=== PATIENT | female | born 1950 | race Caucasian/White ===

== ENCOUNTER 2016-02-26 19:06 | Inpatient (IN) | payer OTHER ==
[~2016-02-26] VITALS: Ht 170.2 cm; Wt 63.5 kg
--- NOTE | 2016-02-26 19:10 | ED DYSPNEA/ASTHMA COMPLAINT ---
History of Present Illness General Chief Complaint: Dyspnea (COPD, CHF, Other) Stated Complaint: DIFF BREATHING Source: patient Exam Limitations: no limitations Vital Signs & Intake/Output Vital Signs & Intake/Output Vital Signs Date Time Temp Pulse Resp B/P Pulse O2 O2 Flow FiO2 Ox Delivery Rate 02/26 0040 98.7 93 20 108/80 98 Nasal 2.0L Cannula 02/25 2211 97.0 93 16 130/71 96 Nasal 2.0L Cannula 02/25 2050 102 20 156/89 98 Nasal 2.0L Cannula 02/25 2027 Nasal 2.0L Cannula 02/25 2022 103 02/26 2008 105 16 134/92 98 Nasal 2.5L Cannula 02/25 1942 106 114/80 02/25 1939 140 114/80 02/25 1934 166 120/58 02/26 1932 174 02/26 1932 168 120/58 02/25 1930 176 140/100 02/25 1930 175 120/58 02/25 192 190 02/25 192 190 144/100 02/25 191 180 144/100 ED Intake and Output 02/26 0000 02/25 1200 Intake Total 40 Output Total Balance 40 Intake, IV 40 Patient 140 lb Weight Allergies Coded Allergies: No Known Allergies (02/26/16) Reconcile Medications No Known Home Medications Triage Nurses Notes Reviewed? yes Onset: Abrupt Duration: week(s):, waxing and waning Timing: recent history Severity: severe Activities at Onset: none Prior Episodes/Possible Cause: occasional episodes Modifying Factors: Improves With: rest. Associated Symptoms: palpitations, shortness of breath HPI: 65 yo woman presents with intermittent palpitations and shortness of breath for the past several weeks. She notes that today she felt a rapid heart beat for several hours, accompanied by shortness of breath that did not son. She called the ambulance who noted a rapid heart rate. She noted occasional pressure in her chest, without radiation. She notes no cough, phlegm, wheeze, fever. She is otherwise well. Past History Medical History Any Pertinent Medical History? see below for history (no PMD for several years. ) Surgical History Surgical History: none Family History Hx Contributory? No Review of Systems Review of Systems Constitutional: Reports: no symptoms. EENTM: Reports: no symptoms. Respiratory: Reports: no symptoms. Cardiovascular: Reports: no symptoms. GI: Reports: no symptoms. Genitourinary: Reports: no symptoms. Musculoskeletal: Reports: no symptoms. Skin: Reports: no symptoms. Neurological/Psychological: Reports: no symptoms. Hematologic/Endocrine: Reports: no symptoms. Immunologic/Allergic: Reports: no symptoms. All Other Systems: Reviewed and Negative Physical Exam Physical Exam General Appearance: well developed/nourished, mild distress Head: atraumatic, normal appearance Eyes: Bilateral: normal appearance. Ears, Nose, Throat: normal pharynx Neck: normal inspection, supple, full range of motion Respiratory: normal breath sounds, chest non-tender, no respiratory distress, quiet respiration, lungs clear Cardiovascular: tachycardic Gastrointestinal: normal bowel sounds Rectal: normal exam, normal rectal tone, heme negative stool Extremities: normal inspection Neurologic/Psych: no motor/sensory deficits, awake, alert, oriented x 3 Skin: intact, warm/dry Core Measures ACS in differential dx? No Severe Sepsis Present: No Septic Shock Present: No Progress Differential Diagnosis: afib vs svt vs mi vs other. Plan of Care: Orders Procedure Date/time Status Nothing by Mouth 02/26 B Active TROPONIN LEVEL 02/26 1200 Active EKG 02/26 1200 Active TROPONIN LEVEL 02/26 0400 Active LIPID PANEL 02/26 0400 Active HEPATIC FUNCTION PANEL 02/26 0400 Active CBC WITHOUT DIFFERENTIAL 02/26 0400 Active BASIC ELECTROLYTES PLUS BUN&CR 02/26 0400 Active EKG 02/26 0400 Active PARTIAL THROMBOPLASTIN TIME 02/26 0345 Active Heparin Drip- AFIB/FLUTTER/PE/ 02/25 2348 Active Vital Signs 02/25 2347 Active Teach/Educate 02/25 234 Active Nutritional Intake, Monitor 02/25 2347 Active Isolation 02/25 2347 Active Intake & Output 02/25 2347 Active Patient Care Conference 02/25 2347 Active Activity/Ambulation 02/25 2347 Active Saline Lock 02/25 2131 Active Misc Message 02/25 2131 Active ED Holding Orders 02/25 2131 Active Admit to inpatient 02/25 2131 Active Vital Signs 02/25 2131 Active Code Status 02/25 2131 Active ECHOCARDIOGRAM 02/26 2128 Active Pathway - chart 02/26 2120 Active Code Status 02/26 2120 Complete Intake & Output 02/26 2016 Active Patient Data 02/25 2014 Active Add-on Test (ER Only) 02/25 1949 Active EKG 02/26 1936 Active TSH REFLEX 02/25 1911 Complete TROPONIN LEVEL 02/25 1911 Complete PARTIAL THROMBOPLASTIN TIME 02/25 1911 Complete PROTHROMBIN TIME 02/25 1911 Complete COMPREHENSIVE METABOLIC PANEL 02/25 1911 Complete CBC WITHOUT DIFFERENTIAL 02/25 1911 Complete B-TYPE NATRIURETIC PEP (BNP) 02/25 1911 Complete EKG 02/25 1911 Active Pathway - chart 02/25 UNK Active House Staff 02/25 UNK Active VTE Mechanical Prophylaxis 02/25 UNK Active Current Medications Sig/Joann Start time Last Medication Dose Stop Time Status Admin Acetaminophen 650 MG Q6P PRN 02/25 2130 AC (Tylenol) Diltiazem HCl 125 MG Q12H 02/25 1945 CAN (Cardizem DRIP) Sodium Chloride 100 ML (Normal Saline 0.9%) Metoprolol Tartrate 5 MG ONCE ONE 02/25 1930 CAN (Lopressor Inj. 5MG 02/25 1931 Per 5 Ml) Laboratory Tests 02/26/16 1950: Anion Gap 16, Estimated GFR 56 L, BUN/Creatinine Ratio 19.0, Glucose 152 H, Calcium 9.1, Total Bilirubin 1.4 H, AST 30, ALT 76 H, Alkaline Phosphatase 72, Troponin I 0.09, Mkw-C-Iiirptkenzp Pept 8180 H, Total Protein 6.1 L, Albumin 3.6, Globulin 2.5, Albumin/Globulin Ratio 1.4, TSH &T3 &Free T4 Intrp 2.340, PT 12.4, INR 1.18, APTT 31, CBC w Diff NO MAN DIFF REQ, RBC 4.33, MCV 94.2, MCH 31.4 H, RDW 14.6 H, MPV 10.8 H, Gran % 82.1 H, Lymphocytes % 12.6 L, Monocytes % 4.7, Eosinophils % 0.3, Basophils % 0.3, Absolute Granulocytes 8.2 H, Absolute Lymphocytes 1.3, Absolute Monocytes 0.5, Absolute Eosinophils 0, Absolute Basophils 0, PUBS MCHC 33.3 Diagnostic Imaging: Viewed by Me: Radiology Read. Discussed w/RAD: Radiology Read. CXR Impression: no acute abnormality, no infiltrates, normal size heart, normal mediastinum Initial ED EKG: svt vs afib with rvr Repeat EKG: changed Departure Departure Disposition: STILL A PATIENT Condition: Stable Clinical Impression Primary Impression: Atrial fibrillation with rapid ventricular response Referred to [facility] as new patient No Departure Forms: Customer Survey General Discharge Information Prescriptions: Current Visit Scripts No Known Home Medications Admission Note Spoke With: BHARAT SPEARS MD Documentation of Exam: Documentation of any treatments & extenuating circumstances including Concerns Regarding Discharge (functional status, medication knowledge or non-compliance, living conditions, etc.) that warrant an admission rather than observation: pt with afib with rapid ventricular response, requiring lopressor iv, dilt gtt. pt had pulse in 200's initially requiring adenosine to determine afib with rvr vs svt. Critical Care Note Critical Care Note Critical Care Time: 30-74 min Comments: pt given adenosine 6mg iv x 2 which reveals underlying afib. pt given lopressor 5mg iv x 1... which reduced pulse from 180's to 140's pt give diltiazem 10mg iv x 2... pulse decreased to 90's-100's... pt started on dilt gtt and heparin (pt guiac negative)... pulse in 80's
[2016-02-26 19:58] LABS: ABSOLUTE BASOPHIL COUNT 0 /CUMM (0.0-0.2); ABSOLUTE EOSINOPHIL COUNT 0 /CUMM (0.0-0.7); ABSOLUTE GRANULOCYTE CT 8.2 /CUMM (1.4-6.5); ABSOLUTE LYMPH COUNT 1.3 /CUMM (1.2-3.4); ABSOLUTE MONOCYTE COUNT 0.5 /CUMM (0.10-0.60); BASOPHIL % 0.3 % (0.0-2.0); EOSINOPHIL % 0.3 % (0-5); GRANULOCYTE % 82.1 % (42.2-75.2); HEMATOCRIT 40.8 % (37-47); MEAN CORPUSCULAR HGB 31.4 PG (27.0-31.0); MEAN CORPUSCULAR HGB CONC 33.3 G/DL (33.0-37.0); MEAN CORPUSCULAR VOLUME 94.2 FL (81.0-99.0); MEAN PLATELET VOLUME 10.8 FL (7.4-10.4); PLATELET COUNT 176 /CUMM (130-400); RBC DISTRIBUTION WIDTH 14.6 % (11.5-14.5); RED BLOOD CELL CT 4.33 /CUMM (4.20-5.40)
[2016-02-26] MEDS ORDERED: PROTONIX40 M3 PO (20:08)
[2016-02-26 20:12] LABS: PT 12.4 SEC (9.4-12.5); PTT 31 SEC (25-37)
--- NOTE | 2016-02-26 20:30 | History & Physical ---
JANUSZ SAUNDERS MD 02/26/162023: General Information and HPI MD Statement: I have seen and personally examined FLORIDALMA BELTRAN and documented this H&P. The patient is a 65 year old F who presented with a patient stated chief complaint of []. Source of Information: patient Exam Limitations: no limitations History of Present Illness: Patient is a 65-year-old female presented with the chief complaints of shortness of breath, chest pain and palpitations from last 3 weeks. According to the patient. She is complaining her heart is beating very fast. She felt palpitations intermittently, 4 times in a week, never while sleeping. It is associated with shortness of breath especially while walking. She felt generalized weakness, tingling and numbness in the legs and hands. She had occasional chest pain, on rest, 3 out of 10. She also became start her father and brother also having atrial fibrillation but she don't know exactly the cause of it. She denies anxiety, stress, swelling in the legs, pain abdomen, constipation, rash, discoloration of skin, orthopnea, PND, cough, recent URI, fever, thyroid issues in the past, hospitalization, diabetes, hypertension, anemia, GI bleed, sweating. She is not following any Dr/she don't have any primary care provider. Chronic diarrhea-she has history of chronic diarrhea from many years. She claims that she was evaluated many years ago but never had colonoscopy. It is on and off watery in nature, denies any blood in the stool. She occasionally will take Imodium for it. Incontinence of the urine-since many years, not taking any medications. Her sister is also having the same. 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 She never smoked, using alcohol socially. Family history- Father- of Massive stroke, Had history of atrial fibrillation Mother -had many strokes, of infection in the colon. Allergies/Medications Allergies: Coded Allergies: No Known Allergies (02/26/16) Past History Travel History Traveled to [place] past 21 day No Medical History Neurological: NONE EENT: NONE Cardiovascular: NONE Respiratory: NONE Gastrointestinal: NONE Hepatic: NONE Renal: NONE Musculoskeletal: NONE Psychiatric: NONE Endocrine: NONE Blood Disorders: NONE Cancer(s): NONE CIGARETTE SELLER/Reproductive: NONE Surgical History Surgical History: none Past Family/Social History Psychosocial History ETOH Use: occasional use Illicit Drug Use: denies illicit drug use Review of Systems Review of Systems Constitutional: Reports: chills, malaise, weakness. Denies: diaphoresis, fever, unexplained weight loss. EENTM: Denies: no symptoms. Cardiovascular: Reports: chest pain, palpitations. Denies: edema, orthopena, peripheral edema, syncope. Respiratory: Reports: cough, short of breath. Denies: hemoptysis, orthopnea, sputum production, stridor, wheezing. GI: Reports: diarrhea. Denies: abdominal pain, bloating, constipation, distention, melena, nausea, bloody stool, changes in stool, vomiting, steatorrhea. Genitourinary: Reports: frequency, urgency. Denies: discharge, dysuria, hematuria, hesitation, nocturia, pain. Musculoskeletal: Denies: back pain, gout, joint pain, joint swelling. Skin: Denies: no symptoms. Neurological/Psychological: Reports: anxiety. Denies: ataxia, cognitive dysfunction, confusion, depressed, dementia, emotional problems, headache, numbness, paresthesia, pre-existing deficit. Exam & Diagnostic Data Last 24 Hrs of Vital Signs/I&O Vital Signs Date Time Temp Pulse Resp B/P Pulse O2 O2 Flow FiO2 Ox Delivery Rate 02/26 0040 98.7 93 20 108/80 98 Nasal 2.0L Cannula 02/25 2211 97.0 93 16 130/71 96 Nasal 2.0L Cannula 02/25 2050 102 20 156/89 98 Nasal 2.0L Cannula 02/25 2027 Nasal 2.0L Cannula 02/25 2022 103 02/26 2008 105 16 134/92 98 Nasal 2.5L Cannula 02/25 1942 106 114/80 02/25 1939 140 114/80 02/25 1934 166 120/58 02/26 1932 174 02/26 1932 168 120/58 02/25 1930 176 140/100 02/25 1930 175 120/58 02/25 1925 190 02/25 1925 190 144/100 02/25 1917 180 144/100 Intake & Output 02/26 0800 02/26 0000 02/25 1600 Intake Total 40 Output Total Balance 40 Intake, IV 40 Patient 63.503 kg Weight Physical Exam General Appearance Alert, Oriented X3, Cooperative, No Acute Distress Skin No Rashes HEENT Atraumatic, PERRLA, EOMI Neck Supple, No JVD, No thryomegaly Cardiovascular irregular Lungs Clear to Auscultation, Normal Air Movement Abdomen Soft, No Tenderness Neurological Normal Gait, Normal Speech, Strength at 5/5 X4 Ext, Normal Tone Extremities No Clubbing, No Cyanosis, No Edema, Normal Pulses Assessment/Plan Assessment: Assessment and plan Vital signs at the time of admission-temperature 98.7, pulse 93, respiratory rate 20, blood pressure 140/100, SPO2 98% on nasal cannula 2 liters EKG - atrial fibrillation, heart rate-105, no ST-T wave changes. Chest p-igr-Obttjcjcstjq, small right effusion. No significant pulmonary vascular congestion. Emphysematous hyperinflation of lungs. Pertinent labs-troponin I-0.09, AST 76, proBNP 8180, Problem List - Paroxysmal Af/ New onset Plan - Paroxysmal atrial fibrillation - * As the patient is having chest pain, will trend EKGs/troponin * We'll start patient on IV heparin for 24 hours and converted to by mouth medication warfarin/Eliquis/pradaxa. She was still confused, which medication she really want to be on * We'll start the patient on IV diltiazem with a target heart rate < 110 * Will do continuous cardiac monitoring * Watch was bradycardia/tachycardia * Watch for bleeding * Regular monitoring of APTT to adjust the dose of heparin * We will do echocardiogram to rule out any thrombus or any wall motion abnormality Diet-heart healthy diet DVT prophylaxis-ALP S/heparin CODE STATUS-full code As Ranked By This Provider Problem List: 1. Atrial fibrillation and flutter Core Measures/Miscellaneous Acute Coronary Syndrome ACS Diagnosis: No Cerebrovascular Accident CVA/TIA Diagnosis: No Congestive Heart Failure CHF Diagnosis: No Venous Thromboembolism VTE Risk Factors: Age > 40 VTE Prophylaxis Ordered Inpt: Mechanical (AL[facility]TED[facility]) [facility] d/t: No contraindications No VTE Pharm Prophylaxis d/t: No contraindications VTE Diagnosis: No VTE Type: NONE VTE Confirmed by (Test): NONE Severe Sepsis Severe Sepsis Present: No Septic Shock Septic Shock Present: No Miscellaneous Documentation Attending Case Discussed With: BHARAT SPEARS MD Primary Care Physician: PATIENT HAS NO PRIMARY CARE DR Patient sees these Specialists none Level of Patient Care: Telemetry BHARAT SPEARS MD 02/26/162056: General Information and HPI Allergies/Medications Home Med list Dabigatran Etexilate Mesylate (Pradaxa 150 MG) 150 MG CAPSULE 1 CAP PO BID Blood thinner Lisinopril 5 MG TABLET 1 TAB PO DAILY HEART HEALTH Metoprolol Succinate (Toprol XL) 200 MG TAB.ER.24H 1 TAB PO DAILY heart rate control Multivitamin (Multi-Day Vitamins) 1 EACH TABLET 1 TAB PO DAILY SUPPLEMENT ( Reported) Attending MD Review Statement Attending Statement Attending MD Statement: examined this patient, discuss w/resident/PA/BATCH PLANT SUPERVISOR, agreed w/resident/PA/BATCH PLANT SUPERVISOR, discussed with family, reviewed EMR data (avail), discussed with nursing, reviewed images, amended to note Attending Assessment/Plan: Agree with housestaff note above. the patient is a 65-year-old female with no prior cardiac history presenting with complaint of racing heart. She has had palpitations intermittently occurring approximately 4 times per week primarily while she is active. She has associated shortness of breath. The shortness of breath is increase with activity such as walking. She also notes tingling and numbness in her legs and hand. She has intermittent chest discomfort which is a substernal tightness that is a 3/10 in severity and does not radiate. No syncope. No orthopnea. No lightheadedness or dizziness. Review of systems: No fever. No chills. No rash. No tremor. All other systems are reviewed and are noted to be negative Family history is reviewed with the patient is negative for any elements contributing to the current admission. Physical examination: Gen: The patient is in no acute distress HEENT: Normal nose, ears, and oropharynx. Pupils equal bilaterally. Conjunctiva normal. Neck: Supple with no JVD, no masses, and no thyromegaly Lungs: Clear to auscultation with normal respiratory effort Heart: Irregularly irregular, S1, S2, no murmurs. No peripheral edema, 2+ pulses in the lower extremities bilaterally Abdomen: Soft, nontender, no masses. No hepatomegaly. No splenomegaly Extremities: No clubbing or cyanosis. Normal muscle strength in the upper and lower extremities. Skin: Normal skin turgor with no skin ulcers or lesions noted. Neuro: Cranial nerves intact. Sensation intact Psych: Alert and oriented 3 with appropriate affect EKG tracing is independently reviewed, and reveals atrial fibrillation with ventricular response 105 chest x-ray: Cardiomegaly, small right pleural effusion. Emphysematous hyperinflation of the lungs. Labs: platelets 176, CO2 15, BUN 19, creatinine 1, bilirubin 1.4, ALT 76, BNP 8180 Assessment: The patient is a 65-year-old female presenting with new atrial fibrillation with rapid ventricular rate. Plan: * Cardizem drip, titrate to ventricular rate of less than 110 * Rule out myocardial infarction * IV heparin per protocol * Echocardiogram JC GIBBONS 02/26/163: Resident Review Statement Resident Statement: examined this patient, discussed with post graduate internship, agreed with post graduate internship, reviewed EMR data (avail), amended to note Other Findings: 65-year-old lady with no significant past medical history came with chief complaint of shortness of breath and palpitation which ad been going on for 3 weeks. She reports having intermittent episodes of palpitations with occasional dizziness and chest pain and shortness of breath which has been going on and off at least 4 times a week for 3 weeks. However the episode increased about 2 days ago and today patient had multiple episodes of hypotension and severe shortness of breath which prompted her to come to the hospital. Patient denies any fevers, chills, vomiting, constipation, limb weakness. Patient reports nausea while having palpitations, and on and off diarrhea. She has not seen PCP for a long time. She denies a smoking, she is a social drinker and denies any illicit drugs. Initial EKG at ED showed A. fib versus SVT patient got 2 episodes of 6 mg adenosine with metoprolol and diltiazem. Second and third EKG showed the patient has afib. Patient was put on diltiazem and heparin drip. Vital signs on admission pulse oximetry 98% on 2 L, blood pressure 154/92, respirations 16, pulse rate 105. EKG showed A. fib 105, crit 30 471, poor R progression, no acute ST-T changes Notable labs and admission platelets 176, CO2 15, BUN 19, creatinine 1, bilirubin 1.4, ALT 76, BNP 8180 TFTs were unremarkable CXR Cardiomegaly. Possible small right effusion. No significant pulmonary vascular congestion. Emphysematous hyperinflation of lungs. Assessment and plan #New onset A. fib -Start the patient on IV heparin - start The patient on IV diltiazem -Possible discussion tomorrow for eliquis versus Praxada -24 hour cardiac monitoring -Check lipid panel -No Lasix for now -heart healthy diet #DVT prophylaxis mechanical and IV heparin, full code, Tylenol for pain.
--- NOTE | 2016-02-26 21:12 | RADIOLOGY REPORT ---
EXAMINATION: XR PORTABLE CHEST CLINICAL INFORMATION: Palpitations. Shortness of breath. COMPARISON: None. TECHNIQUE: Portable view of the chest was obtained. FINDINGS: Heart size is enlarged. Emphysematous lucencies of lung. No pulmonary vascular congestion. No infiltrate. May be small right pleural effusion blunting the right costophrenic angle with haziness at the costophrenic angle. IMPRESSION: Cardiomegaly. Possible small right effusion. No significant pulmonary vascular congestion. Emphysematous hyperinflation of lungs.
[2016-02-27 00:40] VITALS: BP 108/80
[2016-02-27 04:16] LABS: ABSOLUTE BASOPHIL COUNT 0 /CUMM (0.0-0.2); ABSOLUTE EOSINOPHIL COUNT 0.1 /CUMM (0.0-0.7); ABSOLUTE GRANULOCYTE CT 4.8 /CUMM (1.4-6.5); ABSOLUTE LYMPH COUNT 2.1 /CUMM (1.2-3.4); ABSOLUTE MONOCYTE COUNT 0.4 /CUMM (0.10-0.60); BASOPHIL % 0.3 % (0.0-2.0); EOSINOPHIL % 1.3 % (0-5); GRANULOCYTE % 64.8 % (42.2-75.2); MEAN CORPUSCULAR HGB 31.6 PG (27.0-31.0); MEAN CORPUSCULAR HGB CONC 33.8 G/DL (33.0-37.0); MEAN CORPUSCULAR VOLUME 93.7 FL (81.0-99.0); MEAN PLATELET VOLUME 10.6 FL (7.4-10.4); PLATELET COUNT 136 /CUMM (130-400); RBC DISTRIBUTION WIDTH 14.4 % (11.5-14.5); RED BLOOD CELL CT 3.76 /CUMM (4.20-5.40); WHITE BLOOD CELL COUNT 7.5 /CUMM (4.8-10.8)
[2016-02-27 04:20] LABS: HEMATOCRIT 35.3 % (37-47)
[2016-02-27 04:25] LABS: PTT 86 SEC (25-37)
--- NOTE | 2016-02-27 06:35 | PN- Housestaff ---
Subjective Follow-up For: afib Tele-Events Since Last Visit: Huy. fib, 78-110 Subjective: In examining the patient. Patient is still in A. fib. I had an extensive discussion with the patient about the anticoagulation options. Review of Systems Constitutional: Reports: see HPI. Objective Last 24 Hrs of Vital Signs/I&O Vital Signs Date Time Temp Pulse Resp B/P Pulse O2 O2 Flow FiO2 Ox Delivery Rate 02/26 0040 98.7 93 20 108/80 98 Nasal 2.0L Cannula 02/25 2211 97.0 93 16 130/71 96 Nasal 2.0L Cannula 02/25 2050 102 20 156/89 98 Nasal 2.0L Cannula 02/25 2027 Nasal 2.0L Cannula 02/25 2022 103 02/26 2008 105 16 134/92 98 Nasal 2.5L Cannula 02/25 1942 106 114/80 02/25 1939 140 114/80 02/25 1934 166 120/58 02/26 1932 174 02/26 1932 168 120/58 02/25 1930 176 140/100 02/25 1930 175 120/58 02/25 1925 190 02/25 1925 190 144/100 02/25 1917 180 144/100 Intake & Output 02/26 0800 02/26 0000 02/25 1600 Intake Total 40 Output Total Balance 40 Intake, IV 40 Patient 140 lb Weight Physical Exam General Appearance: Alert, Oriented X3, Cooperative, No Acute Distress Other Physical Findings: Neck Supple, No JVD, No thryomegaly Cardiovascular irregular Lungs Clear to Auscultation, Normal Air Movement Abdomen Soft, No Tenderness Neurological Normal Gait, Normal Speech, Strength at 5/5 X4 Ext, Normal Tone Extremities No Clubbing, No Cyanosis, No Edema, Normal Pulses Current Medications: Current Medications Sig/Joann Start time Last Medication Dose Route Stop Time Status Admin Acetaminophen 650 MG Q6P PRN 02/25 2130 AC PO Adenosine 6 MG ONCE ONE 02/25 1930 DC 02/25 IV 02/25 Adenosine 6 MG ONCE ONE 02/25 1930 DC 02/25 IV 02/25 Adenosine 0 .STK-MED ONE 02/25 1922 DC IV Diltiazem HCl 0 .STK-MED ONE 02/25 1946 DC IV Diltiazem HCl 125 MG Q12H 02/25 1945 CAN Sodium Chloride 100 ML IV Diltiazem HCl 125 MG Q24H 02/25 1945 AC 02/25 Sodium Chloride 100 ML IV 2000 Diltiazem HCl 0 .STK-MED ONE 02/26 1932 DC .ROUTE Diltiazem HCl 20 MG ONCE ONE 02/25 1930 DC 02/25 IV 02/25 Heparin Sodium 25,000 UNIT Q24H 02/25 2300 AC 02/25 (Porcine) IV 2344 Sodium Chloride 500 ML Heparin Sodium 25,000 UNIT Q24H 02/25 2045 DC 02/25 (Porcine) IV 2145 Sodium Chloride 500 ML Metoprolol Tartrate 5 MG ONCE ONE 02/25 1930 DC 02/25 IV 02/25 Metoprolol Tartrate 5 MG ONCE ONE 02/25 1930 CAN IV 02/25 1931 Metoprolol Tartrate 0 .STK-MED ONE 02/25 1927 DC IV Assessment/Plan Assessment: 65-year-old lady with no significant past medical history came with chief complaint of shortness of breath and palpitation which ad been going on for 3 weeks. She reports having intermittent episodes of palpitations with occasional dizziness and chest pain and shortness of breath which has been going on and off at least 4 times a week for 3 weeks. However the episode increased about 2 days ago and today patient had multiple episodes of hypotension and severe shortness of breath which prompted her to come to the hospital. Patient denies any fevers, chills, vomiting, constipation, limb weakness. Patient reports nausea while having palpitations, and on and off diarrhea. She has not seen PCP for a long time. She denies a smoking, she is a social drinker and denies any illicit drugs. Initial EKG at ED showed A. fib versus SVT patient got 2 episodes of 6 mg adenosine with metoprolol and diltiazem. Second and third EKG showed the patient has afib. Patient was put on diltiazem and heparin drip. Vital signs on admission pulse oximetry 98% on 2 L, blood pressure 154/92, respirations 16, pulse rate 105. EKG showed A. fib 105, crit 30 471, poor R progression, no acute ST-T changes Notable labs and admission platelets 176, CO2 15, BUN 19, creatinine 1, bilirubin 1.4, ALT 76, BNP 8180 TFTs were unremarkable CXR Cardiomegaly. Possible small right effusion. No significant pulmonary vascular congestion. Emphysematous hyperinflation of lungs. Assessment and plan #New onset A. fib the patient on IV heparin The patient on IV diltiazem - discussion for eliquis versus Praxada today with -24 hour cardiac monitoring -Echocardiogram pending - lipid panel pending -heart healthy diet #DVT prophylaxis mechanical and IV heparin, full code, Tylenol for pain. Problem List: 1. Atrial fibrillation Pain Ratin Pain Location: No pain Pain Goal: Pain 4 or less Pain Plan: Same Tomorrow's Labs & Rationales: possible dc today
[2016-02-27 08:42] VITALS: BP 104/56
--- NOTE | 2016-02-27 09:27 | Patient Discharge Instructions ---
Discharge Instructions General Discharge Information You were seen/treated for: Atrial fibrillation Watch for these problems: Dizziness Shortness of breath Weakness or numbness on one side of your face or body Chest pain or pressure Confusion or difficulty talking Special Instructions: We are giving you a referral to primary care physician Dr. Pringle. Please see her within one week of discharge. Please follow up with pipe stripper Dr. Romano for atrial fibrillation on Monday (03/04/16). You will be scheduled for an outpatient cardioversion. Diet Recommended Diet: Heart Healthy Activity Full Activity/No Limits: Yes Acute Coronary Syndrome Inclusion Criteria At DC or during hospital stay patient has or had the following: ACS DIAGNOSIS No Discharge Core Measures Meds if any: Prescribed or Continued at Discharge Meds if any: NOT Prescribed or Continued at Discharge Congestive Heart Failure Inclusion Criteria At DC or during hospital stay patient has or had the following: CHF DIAGNOSIS No Discharge Core Measures Meds if any: Prescribed or Continued at Discharge Meds if any: NOT Prescribed or Continued at Discharge Cerebrovascular accident Inclusion Criteria At DC or during hospital stay patient has or had the following: CVA/TIA Diagnosis No Discharge Core Measures Meds if any: Prescribed or Continued at Discharge Meds if any: NOT Prescribed or Continued at Discharge Venous thromboembolism Inclusion Criteria VTE Diagnosis No VTE Type NONE VTE Confirmed by (Test) NONE Discharge Core Measures - Per Current guidelines, there needs to be overlap - treatment for the first 5 days of Warfarin therapy. - If discharged on Warfarin prior to 5 days of - overlap therapy, the patient will need to be - assessed for post discharge needs including - *Post discharge parental anticoagulation - *Warfarin and/or parental anticoagulation education - *Follow up date to check INR post discharge At least 5 days overlap therapy as Inpatient No Meds if any: Prescribed or Continued at Discharge Note: Overlap Therapy is Warfarin and Anticoagulant Meds if any: NOT Prescribed or Continued at Discharge Note: Overlap Therapy is Warfarin and Anticoagulant Meds if any: NOT Prescribed or Continued at Discharge
--- NOTE | 2016-02-27 11:07 | PN- Cardiology ---
Subjective Subjective: The patient remains in atrial fibrillation. Ventricular rate is under control on diltiazem drip. She reports feeling somewhat better. She is anticoagulated on heparin. No chest pain. Intermittent mild palpitations. No shortness of breath. Mild lightheadedness and dizziness. Objective Vital Signs and I&Os Vital Signs Date Time Temp Pulse Resp B/P Pulse O2 O2 Flow FiO2 Ox Delivery Rate 02/26 0842 98.4 88 16 104/56 96 Room Air 02/26 0040 98.7 93 20 108/80 98 Nasal 2.0L Cannula 02/26 0000 Nasal 2.0L Cannula 02/25 2211 97.0 93 16 130/71 96 Nasal 2.0L Cannula 02/25 2050 102 20 156/89 98 Nasal 2.0L Cannula 02/25 2027 Nasal 2.0L Cannula 02/25 2022 103 02/26 2008 105 16 134/92 98 Nasal 2.5L Cannula 02/25 1942 106 114/80 02/25 1939 140 114/80 02/25 1934 166 120/58 02/26 1932 174 02/26 1932 168 120/58 02/25 1930 176 140/100 02/25 1930 175 120/58 02/25 1925 190 02/25 1925 190 144/100 02/25 1917 180 144/100 Intake & Output 02/26 1600 02/26 0800 02/26 0000 02/25 1600 02/25 0800 02/25 0000 Intake Total 293.2 40 Output Total Balance 293.2 40 Intake, IV 243.2 40 Intake, Oral 50 Patient 140 lb Weight Physical Exam: Gen: NAD HEENT: normal Lungs: clear to auscultation, normal resp. effort Heart: Irregularly irregular, S1, S2, no murmurs Abdomen: Soft, nontender, no masses Extremities: No clubbing, cyanosis, or edema. Neuro: Alert and oriented x 3, cranial nerves intact Current Medications: Current Medications Sig/Joann Start time Last Medication Dose Route Stop Time Status Admin Acetaminophen 650 MG Q6P PRN 02/25 2130 AC PO Adenosine 6 MG ONCE ONE 02/25 1930 DC 02/25 IV 02/25 Adenosine 6 MG ONCE ONE 02/25 1930 DC 02/25 IV 02/25 Adenosine 0 .STK-MED ONE 12/30 1922 DC IV Diltiazem HCl 125 MG Q16H 02/26 0900 AC Sodium Chloride 100 ML IV Diltiazem HCl 0 .STK-MED ONE 02/25 1946 DC IV Diltiazem HCl 125 MG Q12H 02/25 1945 CAN Sodium Chloride 100 ML IV Diltiazem HCl 125 MG Q24H 02/25 1945 DC 02/25 Sodium Chloride 100 ML IV 2000 Diltiazem HCl 0 .STK-MED ONE 02/26 1932 DC .ROUTE Diltiazem HCl 20 MG ONCE ONE 02/25 1930 DC 02/25 IV 02/25 Heparin Sodium 25,000 UNIT Q24H 02/25 2300 AC 02/25 (Porcine) IV 2344 Sodium Chloride 500 ML Heparin Sodium 25,000 UNIT Q24H 02/25 2045 DC 02/25 (Porcine) IV 2145 Sodium Chloride 500 ML Metoprolol Tartrate 5 MG ONCE ONE 02/25 1930 DC 02/25 IV 02/25 Metoprolol Tartrate 5 MG ONCE ONE 02/25 1930 CAN IV 02/25 1931 Metoprolol Tartrate 0 .STK-MED ONE 02/25 1927 DC IV Results Last 48 Hrs of Labs/Mics: Laboratory Tests 02/27/16 0335: Anion Gap 8, Estimated GFR > 60, BUN/Creatinine Ratio 22.9, Total Bilirubin 1.2, Direct Bilirubin 0.3, AST 24, ALT 59 H, Alkaline Phosphatase 55, Troponin I 0.09, Total Protein 5.0 L, Albumin 2.8 L, Triglycerides 59, Cholesterol 144, LDL Cholesterol, Calc 93, HDL Cholesterol 40, Cholesterol/HDL Ratio 4, APTT 86 H, CBC w Diff NO MAN DIFF REQ, RBC 3.76 L, MCV 93.7, MCH 31.6 H, RDW 14.4, MPV 10.6 H, Gran % 64.8, Lymphocytes % 27.9, Monocytes % 5.7, Eosinophils % 1.3, Basophils % 0.3, Absolute Granulocytes 4.8, Absolute Lymphocytes 2.1, Absolute Monocytes 0.4, Absolute Eosinophils 0.1, Absolute Basophils 0, PUBS MCHC 33.8 02/26/16 1950: Anion Gap 16, Estimated GFR 56 L, BUN/Creatinine Ratio 19.0, Glucose 152 H, Calcium 9.1, Total Bilirubin 1.4 H, AST 30, ALT 76 H, Alkaline Phosphatase 72, Troponin I 0.09, Bku-T-Acwksdlgwrh Pept 8180 H, Total Protein 6.1 L, Albumin 3.6, Globulin 2.5, Albumin/Globulin Ratio 1.4, TSH &T3 &Free T4 Intrp 2.340, PT 12.4, INR 1.18, APTT 31, CBC w Diff NO MAN DIFF REQ, RBC 4.33, MCV 94.2, MCH 31.4 H, RDW 14.6 H, MPV 10.8 H, Gran % 82.1 H, Lymphocytes % 12.6 L, Monocytes % 4.7, Eosinophils % 0.3, Basophils % 0.3, Absolute Granulocytes 8.2 H, Absolute Lymphocytes 1.3, Absolute Monocytes 0.5, Absolute Eosinophils 0, Absolute Basophils 0, PUBS MCHC 33.3 Recent Imaging Studies: EKG tracing is independently reviewed, and reveals atrial fibrillation with ventricular response of 92, T wave abnormality, QTC 510 Assessment/Plan Assessment/Plan 1. New onset atrial fibrillation, rate under control. 2. Anticoagulated on heparin Plan: * Start metoprolol 25 mg by mouth twice a day for rate control. * Wean off diltiazem drip, after first dose of metoprolol. Keep ventricular rate less than 110 * If unable to wean off diltiazem drip, then we will give an additional 25 mg dose of metoprolol, and increase to 50 mg by mouth twice a day. * Start Pradaxa 150 mg by mouth twice a day. * Discontinue IV heparin when first dose of Pradaxa is given. * Echocardiogram. * Potassium chloride 20 mEq by mouth 1 for borderline low potassium * Check magnesium level and supplement to 2.0 if needed. Continue telemetry? Yes
[2016-02-27 16:49] VITALS: BP 108/62
--- NOTE | 2016-02-27 20:21 | Event Note ---
Event Note Event Note: I was called to see the patient. She was complaining of chest tightness along with the headache. She claims it was milder than as she presented. Her Vitals were stable, HR 112/min, Advised to do EKG and trop-I. EKG showed no any new ST/ T wave changes. Discussed with Dr Romano, advised to give s/l NTG, IV metoprolol 5mg state. After getting metoprolol patient chest pain went down to 1 /10 and her heart rate goes down to 80. Patient was feeling much comfortable. According to dr romano we increased the dose of metoprolol to 50mg BID.
[2016-02-28 00:29] VITALS: BP 110/60
--- NOTE | 2016-02-28 08:25 | PN- Housestaff ---
Subjective Follow-up For: 1. New onset atrial fibrillation, rate under control. 2. Anticoagulated on heparin- discontinued 3. Chest discomfort, resolved 4. Lightheadedness and weakness Complaints: pain scale (0-10) Tele-Events Since Last Visit: Afibrillation Rate 80-110 PVCs Subjective: And was seen and examined this morning. She is alert awake and oriented to time place and person. The patient had an episode of chest discomfort last night which lasted for a few minutes. She also notes intermittent episodes of weakness and lightheadedness last night and this morning. No shortness of breath. No syncope. No diaphoresis. She notes mild palpitations with sensation of her heart racing intermittently. She remains in atrial fibrillation on telemetry, with rate under control Vitals stable. Afebrile, weight 140, blood pressure 128/70, saturating at 96% on room air Review of Systems Constitutional: Denies: see HPI. Objective Last 24 Hrs of Vital Signs/I&O Vital Signs Date Time Temp Pulse Resp B/P Pulse O2 O2 Flow FiO2 Ox Delivery Rate 02/27 1659 113 110/70 02/27 1530 97.4 95 20 110/70 97 02/27 0844 94.8 140 18 118/70 96 Room Air 02/27 0029 98.3 80 18 110/60 95 Room Air 02/26 2057 94 110/60 02/27 2032 113 104/66 Intake & Output 02/27 1600 02/27 0800 02/27 0000 Intake Total 520 455 640 Output Total Balance 520 455 640 Intake, IV 40 55 40 Intake, Oral 480 400 600 Physical Exam General Appearance: Alert, Oriented X3, Cooperative, No Acute Distress Skin: No Rashes, No Breakdown HEENT: Atraumatic, Mucous Membr. moist/pink Neck: Supple, No JVD Lymphatic: Cervical nl Cardiovascular: Normal S1, Normal S2, irregular rhythm Lungs: Clear to Auscultation Abdomen: Normal Bowel Sounds, Soft, No Tenderness Extremities: No Clubbing, No Cyanosis, No Edema Vascular: Normal Pulses Current Medications: Current Medications Sig/Joann Start time Last Medication Dose Route Stop Time Status Admin Acetaminophen 650 MG Q6P PRN 02/25 2130 AC PO Dabigatran 150 MG BID 02/26 1345 AC 02/27 PO 0901 Diltiazem HCl 125 MG Q24H 02/27 2359 CAN Sodium Chloride 100 ML IV Diltiazem HCl 125 MG Q16H 02/26 0900 DC 02/27 Sodium Chloride 100 ML IV 02/27 2358 0011 Lorazepam 0.5 MG ONCE ONE 02/27 1015 DC 02/27 IV 02/27 1016 1009 Lorazepam 0.5 MG .STK-MED ONE 02/27 0959 DC PO 02/27 1000 Metoprolol Tartrate 50 MG BID 02/27 1000 AC 02/27 PO 1659 Metoprolol Tartrate 5 MG ONCE ONE 02/26 2030 DC 02/26 IV 02/26 Metoprolol Tartrate 25 MG ONCE ONE 02/26 2030 CAN PO 02/26 2031 Metoprolol Tartrate 25 MG BID 02/26 1331 DC 02/26 PO 2056 Nitroglycerin 0.4 MG ONCE ONE 02/26 2030 DC SL 02/26 2031 Last 24 Hrs of Lab/Chuck Results Last 24 Hrs of Labs/Mics: Laboratory Tests 02/28/16 0705: Anion Gap 12, Estimated GFR > 60, BUN/Creatinine Ratio 15.0, Magnesium 2.1, CBC w Diff NO MAN DIFF REQ, RBC 4.11 L, MCV 95.3, MCH 31.7 H, RDW 14.9 H, MPV 10.9 H, Gran % 63.7, Lymphocytes % 26.3, Monocytes % 7.2, Eosinophils % 2.1, Basophils % 0.7, Absolute Granulocytes 4.1, Absolute Lymphocytes 1.7, Absolute Monocytes 0.5, Absolute Eosinophils 0.1, Absolute Basophils 0, PUBS MCHC 33.2 02/27/162029: Troponin I 0.06 Assessment/Plan Assessment: 65-year-old lady with no significant past medical history came with chief complaint of shortness of breath and palpitation which has been going on for 3 weeks. She reports having intermittent episodes of palpitations with occasional dizziness and chest pain and shortness of breath which has been going on and off at least 4 times a week for 3 weeks. However the episode increased about 2 days ago and patient had multiple episodes of hypotension and severe shortness of breath which prompted her to come to the hospital. Initial EKG at ED showed A. fib versus SVT patient got 2 episodes of 6 mg adenosine with metoprolol and diltiazem. Second and third EKG showed the patient has afib. Patient was put on diltiazem and heparin drip. Vital signs on admission pulse oximetry 98% on 2 L, blood pressure 154/92, respirations 16, pulse rate 105. EKG showed A. fib 105, crit 30 471, poor R progression, no acute ST-T changes Notable labs and admission platelets 176, CO2 15, BUN 19, creatinine 1, bilirubin 1.4, ALT 76, BNP 8180 TFTs were unremarkable CXR Cardiomegaly. Possible small right effusion. No significant pulmonary vascular congestion. Emphysematous hyperinflation of lungs. #New onset A. fib heparin drip was discontinued Cardizem drip was discontinued Started on Pradaxa Rate controlled with metoprolol 50 mg twice a day Echocardiogram pending Continuous telemetry monitoring -heart healthy diet #DVT prophylaxispradaxa full code, Tylenol for pain. Problem List: 1. Atrial fibrillation with rapid ventricular response Pain Ratin Pain Location: none Pain Goal: Remain pain free Pain Plan: tylinol Tomorrow's Labs & Rationales: none
[2016-02-28 08:44] VITALS: BP 118/70
[2016-02-28 08:54] LABS: ABSOLUTE BASOPHIL COUNT 0 /CUMM (0.0-0.2); ABSOLUTE EOSINOPHIL COUNT 0.1 /CUMM (0.0-0.7); ABSOLUTE GRANULOCYTE CT 4.1 /CUMM (1.4-6.5); ABSOLUTE LYMPH COUNT 1.7 /CUMM (1.2-3.4); ABSOLUTE MONOCYTE COUNT 0.5 /CUMM (0.10-0.60); BASOPHIL % 0.7 % (0.0-2.0); EOSINOPHIL % 2.1 % (0-5); GRANULOCYTE % 63.7 % (42.2-75.2); HEMATOCRIT 39.2 % (37-47); MEAN CORPUSCULAR HGB 31.7 PG (27.0-31.0); MEAN CORPUSCULAR HGB CONC 33.2 G/DL (33.0-37.0); MEAN CORPUSCULAR VOLUME 95.3 FL (81.0-99.0); MEAN PLATELET VOLUME 10.9 FL (7.4-10.4); PLATELET COUNT 149 /CUMM (130-400); RBC DISTRIBUTION WIDTH 14.9 % (11.5-14.5); RED BLOOD CELL CT 4.11 /CUMM (4.20-5.40); WHITE BLOOD CELL COUNT 6.5 /CUMM (4.8-10.8)
--- NOTE | 2016-02-28 12:15 | PN- Cardiology ---
Subjective Subjective: The patient had an episode of chest discomfort last night which lasted for a few minutes. She also notes intermittent episodes of weakness and lightheadedness last night and this morning. No shortness of breath. No syncope. No diaphoresis. She notes mild palpitations with a sense sensation of her heart racing intermittently. She remains in atrial fibrillation on telemetry, with rate under control Objective Vital Signs and I&Os Vital Signs Date Time Temp Pulse Resp B/P Pulse O2 O2 Flow FiO2 Ox Delivery Rate 02/27 0844 94.8 140 18 118/70 96 Room Air 02/27 0029 98.3 80 18 110/60 95 Room Air 02/26 2057 94 110/60 02/27 2032 113 104/66 02/26 1649 99.3 75 17 108/62 95 Room Air 02/26 1422 98 110/70 Intake & Output 02/27 1600 02/27 0800 02/27 0000 02/26 1600 02/26 0800 02/26 0000 Intake Total 455 640 614.2 293.2 40 Output Total 800 Balance 455 640 -185.8 293.2 40 Intake, IV 55 40 264.2 243.2 40 Intake, Oral 400 600 350 50 Number 0 Bowel Movements Output, Urine 800 Patient 140 lb Weight Physical Exam: Gen: NAD HEENT: normal Lungs: clear to auscultation, normal resp. effort Heart: Irregularly irregular, S1, S2, no murmurs Abdomen: Soft, nontender, no masses Extremities: No clubbing, cyanosis, or edema. Neuro: Alert and oriented x 3, cranial nerves intact Current Medications: Current Medications Sig/Joann Start time Last Medication Dose Route Stop Time Status Admin Acetaminophen 650 MG Q6P PRN 02/25 2130 AC PO Dabigatran 150 MG BID 02/26 1345 AC 02/27 PO 0901 Diltiazem HCl 125 MG Q24H 02/27 2359 CAN Sodium Chloride 100 ML IV Diltiazem HCl 125 MG Q16H 02/26 0900 AC 02/27 Sodium Chloride 100 ML IV 02/27 2358 0011 Heparin Sodium 25,000 UNIT Q24H 02/25 2300 DC 02/25 (Porcine) IV 2344 Sodium Chloride 500 ML Lorazepam 0.5 MG ONCE ONE 02/27 1015 DC 02/27 IV 02/27 1016 1009 Metoprolol Tartrate 50 MG BID 02/27 1000 AC 02/27 PO 0901 Metoprolol Tartrate 5 MG ONCE ONE 02/26 2030 DC 02/26 IV 02/26 Metoprolol Tartrate 25 MG ONCE ONE 02/26 2030 CAN PO 02/26 2031 Metoprolol Tartrate 25 MG BID 02/26 1331 DC 02/26 PO 2056 Nitroglycerin 0.4 MG ONCE ONE 02/26 2030 DC SL 02/26 2031 Potassium Chloride 20 MEQ ONCE ONE 02/26 1345 DC 02/26 PO 02/26 134 1422 Results Last 48 Hrs of Labs/Mics: Laboratory Tests 02/28/16 0705: Anion Gap 12, Estimated GFR > 60, BUN/Creatinine Ratio 15.0, Magnesium 2.1, CBC w Diff NO MAN DIFF REQ, RBC 4.11 L, MCV 95.3, MCH 31.7 H, RDW 14.9 H, MPV 10.9 H, Gran % 63.7, Lymphocytes % 26.3, Monocytes % 7.2, Eosinophils % 2.1, Basophils % 0.7, Absolute Granulocytes 4.1, Absolute Lymphocytes 1.7, Absolute Monocytes 0.5, Absolute Eosinophils 0.1, Absolute Basophils 0, PUBS MCHC 33.2 02/27/16 2030: Troponin I 0.06 02/27/16 1600: APTT Cancelled 02/27/16 1225: Troponin I 0.06 02/27/16 0335: Anion Gap 8, Estimated GFR > 60, BUN/Creatinine Ratio 22.9, Magnesium 2.0, Total Bilirubin 1.2, Direct Bilirubin 0.3, AST 24, ALT 59 H, Alkaline Phosphatase 55, Troponin I 0.09, Total Protein 5.0 L, Albumin 2.8 L, Triglycerides 59, Cholesterol 144, LDL Cholesterol, Calc 93, HDL Cholesterol 40, Cholesterol/HDL Ratio 4, APTT 86 H, CBC w Diff NO MAN DIFF REQ, RBC 3.76 L, MCV 93.7, MCH 31.6 H, RDW 14.4, MPV 10.6 H, Gran % 64.8, Lymphocytes % 27.9, Monocytes % 5.7, Eosinophils % 1.3, Basophils % 0.3, Absolute Granulocytes 4.8, Absolute Lymphocytes 2.1, Absolute Monocytes 0.4, Absolute Eosinophils 0.1, Absolute Basophils 0, PUBS MCHC 33.8 02/26/16 1950: Anion Gap 16, Estimated GFR 56 L, BUN/Creatinine Ratio 19.0, Glucose 152 H, Calcium 9.1, Total Bilirubin 1.4 H, AST 30, ALT 76 H, Alkaline Phosphatase 72, Troponin I 0.09, Jrf-G-Wuljiatdhzs Pept 8180 H, Total Protein 6.1 L, Albumin 3.6, Globulin 2.5, Albumin/Globulin Ratio 1.4, TSH &T3 &Free T4 Intrp 2.340, PT 12.4, INR 1.18, APTT 31, CBC w Diff NO MAN DIFF REQ, RBC 4.33, MCV 94.2, MCH 31.4 H, RDW 14.6 H, MPV 10.8 H, Gran % 82.1 H, Lymphocytes % 12.6 L, Monocytes % 4.7, Eosinophils % 0.3, Basophils % 0.3, Absolute Granulocytes 8.2 H, Absolute Lymphocytes 1.3, Absolute Monocytes 0.5, Absolute Eosinophils 0, Absolute Basophils 0, PUBS MCHC 33.3 Recent Imaging Studies: EKG tracing reveals atrial ablation with ventricular response of 105, right ventricular hypertrophy, abnormal T-wave Assessment/Plan Assessment/Plan 1. New onset atrial fibrillation, rate under control. 2. Anticoagulated on heparin 3. Chest discomfort, resolved 4. Lightheadedness and weakness, possibly secondary to accommodation of metoprolol plus diltiazem Plan: * Discontinue IV diltiazem. * Continue metoprolol 50 mg by mouth twice a day for rate control * If needed to keep average rate less than 110, the metoprolol dose can be increased. * Continue Pradaxa. * Echocardiogram pending. Continue telemetry? Yes
[2016-02-28 15:30] VITALS: BP 110/70
[2016-02-29 00:31] VITALS: BP 99/64
[2016-02-29 06:06] VITALS: BP 118/72
[2016-02-29 08:31] VITALS: BP 118/78
--- NOTE | 2016-02-29 09:21 | PN- Housestaff ---
Subjective Follow-up For: New-onset atrial fibrillation Tele-Events Since Last Visit: Atrial fibrillation. HR 110-140s. Transient elevation to 160s. Subjective: No acute events overnight. Patient seen and examined this morning. She appears anxious and endorses palpitations and lightheadedness. She also complains of epigastric discomfort after swallowing Pradaxa. Review of Systems Constitutional: Reports: see HPI. Objective Last 24 Hrs of Vital Signs/I&O Vital Signs Date Time Temp Pulse Resp B/P Pulse O2 O2 Flow FiO2 Ox Delivery Rate 02/28 1550 97.7 113 19 132/84 96 Room Air 02/28 1205 109 140/80 02/28 0831 98.8 109 17 118/78 96 Room Air 02/28 0609 120 118/72 02/28 0606 120 118/72 02/28 0031 97.9 96 20 99/64 97 Room Air Intake & Output 02/28 1600 02/28 0800 02/28 0000 Intake Total 720 200 900 Output Total Balance 720 200 900 Intake, Oral 720 200 900 Number 1 Bowel Movements Physical Exam General Appearance: Alert, Oriented X3, No Acute Distress HEENT: Mucous Membr. moist/pink Cardiovascular: Irregular Rhythm Lungs: Clear to Auscultation, Normal Air Movement Abdomen: Soft, No Tenderness, Positive Bowel Sounds Extremities: No Clubbing, No Cyanosis, No Edema Current Medications: Current Medications Sig/Joann Start time Last Medication Dose Route Stop Time Status Admin Acetaminophen 650 MG Q6P PRN 02/25 2130 AC PO Calcium Carbonate 500 MG BID 02/28 2200 AC 02/28 PO 2034 Calcium Carbonate 500 MG DAILY PRN 02/28 1245 DC 02/28 PO 1243 Dabigatran 150 MG BID 02/26 1345 AC 02/28 PO 2034 Metoprolol Tartrate 75 MG BID 02/28 2200 AC 02/28 PO 2033 Metoprolol Tartrate 25 MG ONCE ONE 02/28 1200 DC 02/28 PO 02/28 1201 1205 Metoprolol Tartrate 50 MG BID 02/27 1000 DC 02/28 PO 0609 Last 24 Hrs of Lab/Chuck Results Last 24 Hrs of Labs/Mics: Laboratory Tests 02/29/16 1110: Anion Gap 9, Estimated GFR > 60, BUN/Creatinine Ratio 18.8, Phosphorus 4.2, Magnesium 2.0 Assessment/Plan Assessment: 65 y/o F with no significant PMHx who presents with new-onset atrial fibrillation. #New-onset Afib: Remains in atrial fibrillation. Heart rate is still elevated and in the 100-120s. Patient would like to have outpatient cardioversion as opposed to inpatient cardioversion with [facility]. * Continue to monitor patient on telemetry. * Discharge tomorrow if HR improves to <100. * Follow up with Dr. Romano on Monday after discharge. * Continue Pradaxa 150 mg PO BID on discharge. * Continue metoprolol 75 mg PO BID on discharge. #Epigastric discomfort: Possibly associated with Pradaxa. Pradaxa has been known to cause stomach upset, burning or pain. * TUMS with Pradaxa. Diet: Heart Healthy DVT PPx: Pradaxa and ALPs CODE: FULL Problem List: 1. New onset atrial fibrillation Pain Ratin Pain Location: N/A Pain Goal: Remain pain free Pain Plan: Tylenol 650 mg PO Q6H PRN for mild pain (scale 1-3) Tomorrow's Labs & Rationales: None
--- NOTE | 2016-02-29 11:57 | PN- Cardiology ---
Subjective Subjective: The patient notes intermittent mild palpitations and occasional mild lightheadedness. She remains in atrial fibrillation on telemetry. Ventricular rate is mildly elevated at times. Objective Vital Signs and I&Os Vital Signs Date Time Temp Pulse Resp B/P Pulse O2 O2 Flow FiO2 Ox Delivery Rate 02/28 0831 98.8 109 17 118/78 96 Room Air 02/28 0609 120 118/72 02/28 0606 120 118/72 02/28 0031 97.9 96 20 99/64 97 Room Air 02/27 1659 113 110/70 02/27 1530 97.4 95 20 110/70 97 Intake & Output 02/28 1600 02/28 0800 02/28 0000 02/27 1600 02/27 0800 02/27 0000 Intake Total 200 900 520 455 640 Output Total Balance 200 900 520 455 640 Intake, IV 40 55 40 Intake, Oral 200 900 480 400 600 Physical Exam: Gen: NAD HEENT: normal Lungs: clear to auscultation, normal resp. effort Heart: Irregularly irregular, S1, S2, no murmurs Abdomen: Soft, nontender, no masses Extremities: No clubbing, cyanosis, or edema. Neuro: Alert and oriented x 3, cranial nerves intact Current Medications: Current Medications Sig/Jonan Start time Last Medication Dose Route Stop Time Status Admin Acetaminophen 650 MG Q6P PRN 02/25 2130 AC PO Dabigatran 150 MG BID 02/26 1345 AC 02/28 PO 0936 Diltiazem HCl 125 MG Q24H 02/27 2359 CAN Sodium Chloride 100 ML IV Diltiazem HCl 125 MG Q16H 02/26 0900 DC 02/27 Sodium Chloride 100 ML IV 02/27 2358 0011 Metoprolol Tartrate 75 MG BID 02/28 2200 UNVr PO Metoprolol Tartrate 25 MG ONCE ONE 02/28 1200 UNVr PO 02/28 1201 Metoprolol Tartrate 50 MG BID 02/27 1000 DC 02/28 PO 0609 Results Last 48 Hrs of Labs/Mics: Laboratory Tests 02/29/16 1110: Sodium Pending, Potassium Pending, Chloride Pending, Carbon Dioxide Pending, Anion Gap Pending, BUN Pending, Creatinine Pending, BUN/Creatinine Ratio Pending , Phosphorus Pending, Magnesium Pending 02/28/16 0705: Anion Gap 12, Estimated GFR > 60, BUN/Creatinine Ratio 15.0, Magnesium 2.1, CBC w Diff NO MAN DIFF REQ, RBC 4.11 L, MCV 95.3, MCH 31.7 H, RDW 14.9 H, MPV 10.9 H, Gran % 63.7, Lymphocytes % 26.3, Monocytes % 7.2, Eosinophils % 2.1, Basophils % 0.7, Absolute Granulocytes 4.1, Absolute Lymphocytes 1.7, Absolute Monocytes 0.5, Absolute Eosinophils 0.1, Absolute Basophils 0, PUBS MCHC 33.2 02/27/16 2030: Troponin I 0.06 02/27/16 1600: APTT Cancelled 02/27/16 1225: Troponin I 0.06 Assessment/Plan Assessment/Plan 1. New onset atrial fibrillation, rate under control. 2. Anticoagulated on heparin 3. Chest discomfort, resolved 4. Lightheadedness and weakness, possibly secondary to accommodation of metoprolol plus diltiazem Plan: * Give additional 25 mg of metoprolol by mouth now, and increased to 75 mg by mouth twice a day. * Continue Pradaxa. * The patient prefers to have cardioversion as an outpatient rather than an inpatient cardioversion with [facility] * Discharged to home in the afternoon if stable. * Follow up with me on Monday. \ Continue telemetry? Yes
[2016-02-29] MEDS ORDERED: METOPROLOL SUCC25 M1 PO (12:25)
[2016-02-29] MEDS ORDERED: PRADAXA150 M1 PO (12:26)
[2016-02-29 15:50] VITALS: BP 132/84
[2016-02-29 23:18] VITALS: BP 120/72
--- NOTE | 2016-03-01 06:27 | PN- Housestaff ---
Subjective Follow-up For: New-onset atrial fibrillation Tele-Events Since Last Visit: Atrial flutter and atrial fibrillation Heart rate 80-112 No overnight events Subjective: Patient was seen and examined this morning, no overnight events reported by the patient or the nurses. No acute distress, vital signs are stable. Patient reported chest burning sensation after taking paradox and eating, the pain radiated to the side of the chest bilaterally but no radiation to the neck or the left arm, no change in the pain with aspiration. Pain severity range from 1-7 , TUMS didn't help, she refused PPI, denied any abdominal pain, nausea or vomiting, had bowel movement hard this morning. patient also reported fatique and decrease activity level since admission. Review of Systems Constitutional: Denies: see HPI. Objective Last 24 Hrs of Vital Signs/I&O Vital Signs Date Time Temp Pulse Resp B/P Pulse O2 O2 Flow FiO2 Ox Delivery Rate 02/28 2318 97.6 92 18 120/72 97 Room Air 02/28 1550 97.7 113 19 132/84 96 Room Air 02/28 1205 109 140/80 02/28 0831 98.8 109 17 118/78 96 Room Air Intake & Output 03/01 1600 03/01 0800 03/01 0000 Intake Total 0 720 Output Total Balance 0 720 Intake, IV 0 Intake, Oral 0 720 Number 0 Bowel Movements Physical Exam General Appearance: Alert, Oriented X3, Cooperative, No Acute Distress Skin: No Rashes, No Breakdown, No Significant Lesion HEENT: Atraumatic, PERRLA, EOMI, Mucous Membr. moist/pink Neck: Supple, No JVD Cardiovascular: Normal S1, Normal S2, No Murmurs, irregular Lungs: Clear to Auscultation, Normal Air Movement Abdomen: Normal Bowel Sounds, Soft, No Tenderness Neurological: Normal Speech, Strength at 5/5 X4 Ext, Normal Tone, Sensation Intact, Cranial Nerves 3-12 NL Extremities: No Clubbing, No Cyanosis, No Edema, Normal Pulses Vascular: Normal Pulses Assessment/Plan Assessment: 65 y/o F with no significant PMHx who presents with new-onset atrial fibrillation. #New-onset Afib: * A.fib with HR 100-120s. * Patient would like to have outpatient cardioversion as opposed to inpatient cardioversion with CAROLYN. cardioversion as outpatient 4 weeks after anticoagulation * ECHO showed global hypokinesia with EF 30-35%, mild mitral regurgitation, trace aortic regurgitation, mild tricuspid regurgitation, right ventricular systolic pressure estimated at 45 mmHg. * Patient will be discharged today if she remins stable after lisinopril * Follow up with Dr. Romano on Monday after discharge * Continue Pradaxa 150 mg PO BID on discharge * Change metoprolol to Toprol-XL 200 mg daily for treatment of atrial fibrillation and systolic heart failure * Start lisinopril 5 mg daily #Epigastric discomfort: * Patient has history of GERD * Possibly associated with Pradaxa. Pradaxa has been known to cause stomach upset, burning or pain. * TUMS with Pradaxa not helping much, patient refused PPI Diet: Heart Healthy DVT PPx: Pradaxa and ALPs CODE: FULL Problem List: 1. Atrial fibrillation and flutter 2. Atrial fibrillation with rapid ventricular response 3. New onset atrial fibrillation Pain Ratin Pain Location: epigastric pain Pain Goal: Remain pain free Pain Plan: Tylenol 650 mg PO Q6H PRN for mild pain (scale 1-3) Tomorrow's Labs & Rationales: none
[2016-03-01 08:31] VITALS: BP 120/80
--- NOTE | 2016-03-01 09:48 | ECHOCARDIOGRAM REPORT ---
FLORIDALMA BELTRAN Age: 65 : 1950 Gender: F Exam Date: 02/29/2016 10:23 Exam Location: [address] Ht (in): 66 Wt (lb): 140 BSA: 1.72 BP: 118 / 72 Ordering Physician: JC GIBBONS MD Referring Physician: Te Romano MD Technologist: Tamica Azul [facility] Room Number: 189-01 Indications: AFIB/FLUTTER Rhythm: Atrial fibrillation Technical Quality: Technically difficult study FINDINGS Left Ventricle Normal size left ventricle. Moderately decreased left ventricular systolic function. Left ventricular ejection fraction is estimated at 30-35 %. Global hypokinesis. Right Ventricle Normal right ventricular size. Reduced right ventricular global systolic function. Right Atrium Normal right atrial size. Left Atrium Normal left atrial size. Mitral Valve Mitral valve thickened. Mild mitral regurgitation. Aortic Valve Diffuse thickening (sclerosis) of the aortic valve cusps without reduced excursion. No aortic stenosis. Trace aortic regurgitation. Tricuspid Valve Tricuspid valve not well visualized, grossly normal. Mild tricuspid regurgitation. Right ventricular systolic pressure estimated at 45 mmHg. Pulmonic Valve Mild pulmonic regurgitation. Pericardium No pericardial effusion. Great Vessels Normal size aortic root. CONCLUSIONS Moderately decreased left ventricular systolic function. Left ventricular ejection fraction is estimated at 30-35 %. Global hypokinesis. Reduced right ventricular global systolic function. Mild mitral regurgitation. Trace aortic regurgitation. Mild tricuspid regurgitation. Right ventricular systolic pressure estimated at 45 mmHg. Te Romano M.D. (Electronically Signed) Final Date: 01 March 2016 09:47 MEASUREMENTS (Male / Female) Normal Values 2D ECHO LV Diastolic Diameter PLAX 5.2 cm 4.2 - 5.9 / 3.9 - 5.3 cm LV Systolic Diameter PLAX 4.4 cm 2.1 - 4.0 cm LV Fractional Shortening PLAX 15.4 % 25 - 46 % LV Ejection Fraction 2D Teich 32.3 % IVS Diastolic Thickness 0.9 cm LVPW Diastolic Thickness 1.1 cm LV Relative Wall Thickness 0.4 RV Internal Dim ED PLAX 3.4 cm 1.9 - 3.8 cm LVOT Diameter 1.9 cm Aortic Root Diameter 3.0 cm LA Systolic Diameter LX 3.9 cm 3.0 - 4.0 / 2.7 - 3.8 cm Ascending Aorta Diameter 2.9 cm DOPPLER AV Peak Velocity 110.0 cm/s AV Peak Gradient 4.8 mmHg AV Mean Velocity 82.9 cm/s AV Mean Gradient 3.0 mmHg AV Velocity Time Integral 20.1 cm LVOT Peak Velocity 65.4 cm/s LVOT Peak Gradient 1.7 mmHg LVOT Mean Velocity 46.4 cm/s LVOT Mean Gradient 1.0 mmHg LVOT Velocity Time Integral 10.7 cm LVOT Stroke Volume 30.3 cm AV Area Cont Eq vti 1.5 cm AV Area Cont Eq pk 1.7 cm MV Peak Velocity 156.0 cm/s MV Peak Gradient 9.7 mmHg MV Mean Velocity 81.2 cm/s MV Mean Gradient 4.0 mmHg Mitral E Point Velocity 152.0 cm/s MV PHT Velocity 159.0 cm/s MV Deceleration Leslie 719.0 cm/s MV Pressure Half Time 66.3 ms MV Area PHT 3.3 cm MV Deceleration Time 215.0 ms TR Peak Velocity 296.0 cm/s TR Peak Gradient 35.0 mmHg Right Atrial Pressure 10.0 mmHg Pulmonary Artery Systolic Pressu 45.0 mmHg Right Ventricular Systolic Press 45.0 mmHg PV Peak Velocity 70.3 cm/s PV Peak Gradient 2.0 mmHg PV Mean Velocity 41.2 cm/s PV Mean Gradient 1.0 mmHg PV Velocity Time Integral 12.2 cm LV E' Lateral Velocity 4.6 cm/s Mitral E to LV E' Lateral Ratio 33.2 LV E' Septal Velocity 5.2 cm/s Mitral E to LV E' Septal Ratio 29.4
--- NOTE | 2016-03-01 11:07 | PN- Cardiology ---
Subjective Subjective: The patient complains of intermittent fatigue. The fatigue is moderate in severity, and has been occurring for the past few days. It lasts for a few minutes per episode. It is increased with standing or other activity. No chest pain. No palpitations. No shortness of breath. No diaphoresis. vehicle window tinter reveals atrial fibrillation with heart rate mostly under control. Objective Vital Signs and I&Os Vital Signs Date Time Temp Pulse Resp B/P Pulse O2 O2 Flow FiO2 Ox Delivery Rate 03/01 0831 98.2 93 18 120/80 98 Room Air 02/28 2318 97.6 92 18 120/72 97 Room Air 02/28 1550 97.7 113 19 132/84 96 Room Air 02/28 1205 109 140/80 Intake & Output 03/01 1600 03/01 0803/01 0000 02/28 1600 02/28 0800 02/28 0000 Intake Total 0 720 720 200 900 Output Total Balance 0 720 720 200 900 Intake, IV 0 Intake, Oral 0 720 720 200 900 Number 0 1 Bowel Movements Physical Exam: Gen: The patient is in no acute distress HEENT: Normal nose, ears, and oropharynx. Pupils equal bilaterally. Conjunctiva normal. Neck: Supple with no JVD, no masses, and no thyromegaly Lungs: Clear to auscultation with normal respiratory effort Heart: Irregularly irregular, S1, S2, no murmurs. No peripheral edema, 2+ pulses in the lower extremities bilaterally Abdomen: Soft, nontender, no masses. No hepatomegaly. No splenomegaly Extremities: No clubbing or cyanosis. Normal muscle strength in the upper and lower extremities Skin: Normal skin turgor with no skin ulcers or lesions noted. Neuro: Cranial nerves intact. Sensation intact Psych: Alert and oriented 3 with appropriate affect Current Medications: Current Medications Sig/Joann Start time Last Medication Dose Route Stop Time Status Admin Acetaminophen 650 MG Q6P PRN 02/25 2130 AC PO Calcium Carbonate 500 MG BID 02/28 220 AC 03/01 PO 1051 Calcium Carbonate 500 MG DAILY PRN 02/28 1245 DC 02/28 PO 1243 Dabigatran 150 MG BID 02/26 1345 AC 03/01 PO 1051 Metoprolol Tartrate 75 MG BID 02/28 2200 AC 03/01 PO 1051 Metoprolol Tartrate 25 MG ONCE ONE 02/28 1200 DC 02/28 PO 02/28 1201 1205 Metoprolol Tartrate 50 MG BID 02/27 1000 DC 02/28 PO 0609 Results Last 48 Hrs of Labs/Mics: Laboratory Tests 02/29/16 1110: Anion Gap 9, Estimated GFR > 60, BUN/Creatinine Ratio 18.8, Phosphorus 4.2, Magnesium 2.0 Recent Imaging Studies: Echocardiogram: Moderately decreased left ventricular systolic function. Left ventricular ejection fraction is estimated at 30-35 %. Global hypokinesis. Reduced right ventricular global systolic function. Mild mitral regurgitation. Trace aortic regurgitation. Mild tricuspid regurgitation. Right ventricular systolic pressure estimated at 45 mmHg. Images independently reviewed. vehicle window tinter tracings are reviewed and reveals atrial fibrillation. Ventricular rate is mostly under control, but increases at times to the 120s. Chest x-ray 02/26/16: Cardiomegaly. Possible small right effusion. No significant pulmonary vascular congestion. Emphysematous hyperinflation of lungs. Assessment/Plan Assessment/Plan 1. New onset atrial fibrillation, rate under control. 2. New onset left ventricular systolic dysfunction. 3. Chest discomfort, resolved 4. Fatigue and lightheadedness, possibly secondary to atrial fibrillation, systolic heart failure, medications. Plan: * I reviewed the echocardiogram with patient. I explained to her that she has significant left ventricular systolic dysfunction. At this point it is unclear whether the systolic dysfunction is secondary to tachycardia from atrial fibrillation or whether it is secondary to another cause. * Change metoprolol to Toprol-XL 200 mg daily for treatment of atrial fibrillation and systolic heart failure * Start lisinopril 5 mg daily. * Monitor for 3 hours after initial dose of lisinopril, and then discharged home today if stable. * Follow up in the office in 5-7 days. * Continue Pradaxa * Cardioversion as outpatient after 4 weeks of anticoagulation. Continue telemetry? Yes
[2016-03-01] MEDS ORDERED: PRADAXA150 M1 PO (13:42)
[2016-03-01] MEDS ORDERED: TOPROL XL50 M1 PO (13:42)
[2016-03-01] MEDS ORDERED: LISINOPRIL5 M1 PO (13:42)
[2016-03-01] MEDS ORDERED: TOPROL XL200 M1 PO (14:49)
[2016-03-01 15:20] VITALS: BP 110/60
--- NOTE | 2016-03-01 21:44 | Discharge Summary ---
See Addendum Visit Information Visit Dates Admission Date: 02/26/16 Discharge Date: 03/01/16 Hospital Course Course Attending Physician: BHARAT SPEARS MD Primary Care Physician: PATIENT HAS NO PRIMARY CARE DR Consulting Request: Consulting Specialty: Cardiology Hospital Course: 65-year-old lady with no significant past medical history came with chief complaint of shortness of breath and palpitation which ad been going on for 3 weeks. Patient reported intermittent episodes of palpitations with occasional dizziness and chest pain and shortness of breath which has been going on and off at least 4 times a week for the last 3 weeks. These episodes increased in frequency for the last 2 days before admission, on day of admissio the patient reported multiple episodes of hypotension and severe shortness of breath. Patient denied any fevers, chills, vomiting, constipation, limb weakness. Patient reported nausea while having palpitations, and on and off diarrhea. She denies a smoking, she is a social drinker and denies any illicit drugs. EKG on admission showed new onset of A. fib and was started on diltiazem and heparin drip. CXR Cardiomegaly. Possible small right effusion. No significant pulmonary vascular congestion. Emphysematous hyperinflation of lungs. ECHO showed global hypokinesia with EF 30-35%, mild mitral regurgitation, trace aortic regurgitation, mild tricuspid regurgitation, right ventricular systolic pressure estimated at 45 mmHg. Patient was admited to telemetry for the following problems: #New-onset Afib: * A.fib with HR 100-120s. * initially was on heparin and cardizem drip * Toprol-XL 200 mg daily for treatment of atrial fibrillation and systolic heart failure * Pradaxa 150 mg PO BID for anticoagulation * Patient would like to have outpatient cardioversion as opposed to inpatient cardioversion with CAROLYN. cardioversion as outpatient 4 weeks after anticoagulation * Follow up with Dr. Spears on Monday after discharge * lisinopril 5 mg daily #Epigastric discomfort: * Patient has history of GERD * Possibly associated with Pradaxa. Pradaxa has been known to cause stomach upset, burning or pain. * TUMS with Pradaxa not helping much, patient refused PPI Allergies: Coded Allergies: No Known Allergies (02/26/16) Disposition Summary Disposition Principal Diagnosis: new onset A.fib Additional Diagnosis: A. fib with rapid ventricular response Discharge Disposition: home or self care Discharge Instructions General Discharge Information Code Status: Full Code Patient's Diet: heart heathy Patient's Activity: as tolerated Follow-Up Instructions/Appts: We are giving you a referral to primary care physician Dr. Pringle. Please see her within one week of discharge. Please follow up with gate operator Dr. Spears for atrial fibrillation on Monday (03/04/16). You will be scheduled for an outpatient cardioversion. Medications at Discharge Discharge Medications: Start taking the following new medications: Lisinopril (Lisinopril) 5 MG TABLET 1 Tablet ORAL DAILY Qty = 30 No Refills Comments: Last Taken: 03/01/16 Time: 12:30 PM Dabigatran Etexilate Mesylate (Pradaxa 150 MG) 150 MG CAPSULE 1 Capsule ORAL TWICE DAILY Qty = 60 No Refills Comments: Last Taken: 03/01/16 Time: 11 AM Metoprolol Succinate (Toprol XL) 200 MG TAB.ER.24H 1 Tablet ORAL DAILY Days = 30 No Refills Comments: Last Taken: 03/01/15 Time: 11 AM Copies To: TL MAYFIELD,HEDY; BHARAT SPEARS MD
[2016-03-02] MEDS ORDERED: MULTI-DAY VITA1 EACH PO (17:14)
== END 2016-03-01 16:20 | DRG 310 ==
LOC: ERH 19:06 → ERHI 21:31 → 1NO 21:31
PROVIDERS: Internal Medicine; Pediatrics; ADMIT Internal Medicine Cardiovascular Disease
DX: I48.91 Unspecified atrial fibrillation (principal); I95.9 Hypotension, unspecified; I51.7 Cardiomegaly; I48.92 Unspecified atrial flutter; K21.9 Gastro-esophageal reflux disease without esophagitis
CPT/HCPCS: 1NSP; 36415; 82436; 93005; 93010; 93306; 96365; 96375; 96376; 99291; J0153; J1644; J3490; J7508

== ENCOUNTER 2016-03-02 14:34 | Emergency (ER) | payer OTHER ==
[~2016-03-02] VITALS: Ht 167.6 cm; Wt 64.9 kg
[~2016-03-02 14:34] MED LIST: LISINOPRIL5 M1 PO; METOPROLOL SUCC25 M1 PO; PRADAXA150 M1 PO; PROTONIX40 M3 PO; TOPROL XL200 M1 PO; TOPROL XL50 M1 PO
--- NOTE | 2016-03-02 15:23 | ED CARDIAC/CP/PALPITATIONS ---
History of Present Illness General Chief Complaint: General Adult Stated Complaint: D/C'ED YEST AFTER A.FIB, SOB, FEET "JELLY-LIKE" Source: patient, old records Exam Limitations: no limitations Vital Signs & Intake/Output Vital Signs & Intake/Output Vital Signs Date Time Temp Pulse Resp B/P Pulse O2 O2 Flow FiO2 Ox Delivery Rate 03/02 1809 98.0 120 20 135/77 03/02 1809 98.0 120 20 135/77 03/02 1809 98.0 120 20 135/77 03/02 1734 98.0 120 20 135/77 98 Room Air 03/02 1543 110 16 114/53 96 Room Air 03/02 1441 97.6 64 20 96 Room Air Allergies Coded Allergies: No Known Allergies (02/26/16) Reconcile Medications Dabigatran Etexilate Mesylate (Pradaxa 150 MG) 150 MG CAPSULE 1 CAP PO BID Blood thinner Lisinopril 5 MG TABLET 1 TAB PO DAILY HEART HEALTH Metoprolol Succinate (Toprol XL) 200 MG TAB.ER.24H 1 TAB PO DAILY heart rate control Multivitamin (Multi-Day Vitamins) 1 EACH TABLET 1 TAB PO DAILY SUPPLEMENT ( Reported) Triage Note: PT WAS D/C'D FROM HOSPITAL YESTERDAY AFTER 4 DAYS INPATIENT. PT STATES SHE FEELS A "HEAVINESS" ALL OVER HER BODY, PT STATES SHE FEELS SOB AND HER ARMS FELT A LITTLE WEAK. PT STATES HER FEET FEEL "JELLY-LIKE" PT DENIES CP Triage Nurses Notes Reviewed? yes Onset: Abrupt Duration: better Timing: single episode today Quality/Severity: moderate Radiation: no radiation Activities at Onset: none HPI: Patient is a 65-year-old female with an unremarkable past medical history until recently when she was admitted to [facility] on February 25 for concerns of shortness of breath and palpitations. Symptoms have been going on for 3 weeks in which patient was admitted to [facility] for new onset of atrial fibrillation and left ventricular diastolic dysfunction and heart failure. It is noted that echocardiogram showed EF to be 30-35% with mild mitral regurgitation. Patient was discharged on February 25 and was put on Toprol 200 XL, lisinopril 5 mg and PRADAXA. It is noted that patient was discussed at the time of cardioversion however she declined while being admitted and will receive most likely RECEIVE IN 4 weeks. Patient states that she's had persistent shortness of breath and generalized weakness since symptoms began with no changes today however today at 1300 patient had entire body heaviness sensation acutely onset and states that her feet felt like "jelly". Patient states that she could not move her toes due to the heaviness however this lasted for "seconds". Patient still complains of shortness of breath and generalized weakness and fatigue. Patient denies any fever, chills, chest pain arm pain jaw pain nausea vomiting hemoptysis cough palpitations leg swelling. Patient had establishment with Dr. Spears upon admission (JOSE ULIS JAY) Past History Travel History Traveled to [place] past 21 day No Medical History Any Pertinent Medical History? see below for history Neurological: NONE EENT: NONE Cardiovascular: CHF, A-FIB Respiratory: NONE Gastrointestinal: NONE Hepatic: NONE Renal: NONE Musculoskeletal: NONE Psychiatric: NONE Endocrine: NONE Blood Disorders: NONE Cancer(s): NONE AUTOMOTIVE DESIGNER/Reproductive: NONE History of MRSA: No History of VRE: No History of CDIFF: No Surgical History Surgical History: none Psychosocial History Who do you live with Patient/Self What is your primary language Georgian Tobacco Use: Never used ETOH Use: occasional use Illicit Drug Use: denies illicit drug use Family History Hx Contributory? No (JOSE LUIS JAY) Review of Systems Review of Systems Constitutional: Reports: see HPI, malaise, weakness. EENTM: Reports: no symptoms. Respiratory: Reports: see HPI, short of breath. Cardiovascular: Reports: see HPI. Denies: chest pain, peripheral edema. GI: Reports: no symptoms. Genitourinary: Reports: no symptoms. Musculoskeletal: Reports: no symptoms. Skin: Reports: no symptoms. Neurological/Psychological: Reports: no symptoms. Hematologic/Endocrine: Reports: no symptoms. Immunologic/Allergic: Reports: no symptoms. All Other Systems: Reviewed and Negative (JOSE LUIS JAY) Physical Exam Physical Exam General Appearance: no apparent distress, alert Cardiovascular: irregularly irregular Comments: Well-developed well-nourished person in no acute distress HEENT: Normal EENT exam, extraocular motion intact, no nystagmus. Pupils equally round and reactive to light and accommodation. Nose is atraumatic. External auditory canal and Tympanic membranes clear. Pharynx normal. No swelling or edema. Neck: Supple, no lymphadenopathy, normal range of motion without pain or tenderness Back: Nontender, no CVA tenderness. Respiratory: Chest nontender. No respiratory distress.breath sounds clear to auscultation bilaterally Abdomen: Soft, nontender nondistended, no appreciable organomegaly. Normal bowel sounds. No ascites Extremity: No edema, no calf tenderness to palpation, normal and equal pulses. Bilateral upper extremity and lower extremity myotomes, dermatomes, DTRs intact Neuro: Alert oriented x3, motor sensory normal, cranial nerves II through XII grossly intact. Skin: No appreciable rash on exposed skin, skin is warm and dry. Psych: Mood and affect is normal, memory and judgment is normal. Core Measures ACS in differential dx? Yes Severe Sepsis Present: No Septic Shock Present: No (DAKOTA BRUNSON,JOSE LUIS) Progress Differential Diagnosis: AMI, aortic dissection, atrial fibrillation, cholecystitis, CHF/pulm edema, costochondritis, hyperkalemia, hypovolemia, hyperthyroid, hyperventilation, intracranial hemorrhage, musculoskeletal pain, myocarditis, pancreatitis, pericarditis, pneumonia, pneumothorax, PSVT, pulmonary embolism, PUD/GERD, PVCs/PACs, respiratory failure, rib fracture, sepsis, unstable angina, V-fib/V-Tach, WPW syndrome Plan of Care: Orders Procedure Date/time Status Telemetry/Health Facilities Surveyor 03/02 1458 Active TROPONIN LEVEL 03/02 1458 Complete PARTIAL THROMBOPLASTIN TIME 03/02 1458 Complete PROTHROMBIN TIME 03/02 1458 Complete MAGNESIUM 03/02 1458 Complete D-DIMER 03/02 1458 Complete COMPREHENSIVE METABOLIC PANEL 03/02 1458 Complete CBC WITHOUT DIFFERENTIAL 03/02 1458 Complete EKG 03/02 1436 Active THYROID STIMULATING HORMONE 03/02 1342 Complete FREE T4 03/02 1342 Complete Laboratory Tests 03/02/16 1542: PT 13.6 H, INR 1.30 H, APTT 44 H, D-Dimer < 200 03/02/16 1525: TSH Cancelled, Free T4 Cancelled, D-Dimer Cancelled 03/02/16 1342: Anion Gap 13, Estimated GFR > 60, BUN/Creatinine Ratio 23.8, Glucose 99, Calcium 9.1, Magnesium 2.0, Total Bilirubin 1.3, AST 25, ALT 46, Alkaline Phosphatase 64 , Troponin I < 0.01, Total Protein 6.2 L, Albumin 3.5, Globulin 2.7, Albumin/ Globulin Ratio 1.3, TSH 1.370, Free T4 1.33, CBC w Diff NO MAN DIFF REQ, RBC 4.40, MCV 94.1, MCH 31.6 H, RDW 14.7 H, MPV 9.9, Gran % 77.9 H, Lymphocytes % 14.5 L, Monocytes % 5.7, Eosinophils % 1.6, Basophils % 0.3, Absolute Granulocytes 5.8, Absolute Lymphocytes 1.1 L, Absolute Monocytes 0.4, Absolute Eosinophils 0.1, Absolute Basophils 0, PUBS MCHC 33.6 Patient has been compliant with medications and took her Toprol lisinopril and Pradaxa today Patient currently is in no apparent distress and 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 Patient does not have any concerns of CVA or TIA, Patient's CT angiogram was unremarkable for pulmonary embolism and had a negative d-dimer essentially ruling out pulmonary embolism NIH STROKE SCALE - [address] Spears who was aware patient's heart rate and ATRIAL fibrillation noted 125 bpm persistently in which he advised patient to receive today 3 doses of digoxin at 0.125 mg and then begin tomorrow once a day digoxin DIRECTED IN D/C INSTRUCTIONS. He advised patient CAN be safely discharged and follow up in office on Monday. Upon discharge patient looks well no apparent distress will comply with discharge instructions and had no questions. I strongly advised patient to follow up with Dr. Spears and she will comply. Discussed patient with Dr. TATE who agrees with disposition plan (DAKOTA BRUNSON,JOSE LUIS) Diagnostic Imaging: Viewed by Me: CT Scan. Radiology Impression: no acute abnormality Initial ED EKG: ATRIAL FIBRILLATION NOTED 123 BPM WITH pvc Comments: PATIENT: FLORIDALMA BELTRAN PRESENT AGE: 65 PATIENT ACCOUNT NO: [id number] : 51 LOCATION: [facility] ORDERING PHYSICIAN: JOSE LUIS BRUNSON SERVICE DATE: 03/02/169322 EXAM TYPE: CAT - CTA CHEST-PULMONARY EMBOLISM EXAMINATION: CT ANGIOGRAM OF THE CHEST WITH AND WITHOUT CONTRAST (CT PULMONARY ANGIOGRAM FOR PE) CLINICAL INFORMATION: Recent atrial fibrillation diagnosis. Shortness of breath. Evaluate for pulmonary embolism. COMPARISON: No pertinent prior studies are available for comparison. TECHNIQUE: Prior to contrast administration, noncontrast localization images were obtained. Subsequently, multidetector volumetric imaging was performed from the thoracic inlet to below the diaphragms following the administration of 68 mL Optiray 320 intravenous contrast. No contrast reaction reported. Sagittal, coronal, and MIP oblique sagittal reformatted images were obtained on the CT workstation, uploaded to PACS, and reviewed. Total exam dose-length product 313 mGy-cm FINDINGS: QUALITY OF STUDY/CONTRAST BOLUS: Adequate contrast opacification of the pulmonary arterial vasculature. PULMONARY ARTERIES: No evidence of pulmonary embolism to the level of the segmental pulmonary arteries. Evaluation of the subsegmental pulmonary arteries, notably within the left lower lobe is limited secondary to subsegmental atelectasis and respiratory motion abnormality. Areas of hypoattenuation within subsegmental arteries of the left lower lobe are indeterminate and could reflect atelectasis given low lung volumes and respiratory motion abnormality although thrombus cannot be entirely excluded. THORACIC AORTA: Normal caliber of the thoracic aorta. Limited evaluation for thoracic aortic aneurysm given phase of contrast imaging. LUNG: Evaluation of the lung parenchyma demonstrates subsegmental atelectasis within the left lung base. There is no focal airspace consolidation to suggest infection. The central airways are patent, without endobronchial obstructing lesions. PLEURA: No pleural effusions or pneumothoraces. MEDIASTINUM: Mild cardiomegaly, without significant pericardial effusion. Scattered atherosclerosis of the thoracic aorta, without aneurysmal dilatation. No evidence of septal bowing or right heart strain. No significant mediastinal or hilar adenopathy. CHEST WALL/AXILLA: No axillary or internal mammary lymphadenopathy. OSSEOUS STRUCTURES: Mild multilevel degenerative changes of the thoracic spine. No visible destructive osseous lesions. No acute vertebral compression deformities. UPPER ABDOMEN: No acute findings within the upper abdomen. No reflux of contrast into the hepatic veins to suggest elevated right heart pressures. IMPRESSION: Adequate contrast opacification of the pulmonary arterial vasculature. No evidence of pulmonary embolism to the level of the segmental pulmonary arteries. Evaluation of the subsegmental pulmonary arteries, notably within the left upper and left lower lobes is limited secondary to left lung pulmonary hypoinflation as well as left basilar subsegmental atelectasis. If clinical concern for pulmonary embolism persists, consider correlation with bilateral triplex ultrasound of the lower extremities. VTE: Indeterminate within the subsegmental pulmonary arteries of the left upper and left lower lobes. (JOSE LUIS JAY) Departure Departure Disposition: HOME OR SELF CARE Condition: Stable Clinical Impression Primary Impression: Atrial fibrillation Secondary Impressions: Shortness of breath Referrals: PATIENT HAS NO PRIMARY CARE DR (PCP/Family) BHARAT SPEARS MD Additional Instructions: As discussed begin the prescription of digoxin tomorrow as directed for your symptoms. Continue all other medications as directed. Your prescription is waiting at [facility]. If symptoms worsen or if you develop a new concerning symptom return to emergency room immediately. Tomorrow please call your manager mass Dr. Spears to to make an appointment to be evaluated on Monday Departure Forms: Customer Survey General Discharge Information (JOSE LUIS JAY) PA/SENIOR CYTOGENETICS LABORATORY DIRECTOR Co-Sign Statement Statement: ED Attending supervision documentation- [] I saw and evaluated the patient. I have also reviewed all the pertinent lab results and diagnostic results. I agree with the findings and the plan of care as documented in the PA's/SENIOR CYTOGENETICS LABORATORY DIRECTOR's documentation. [x] I have reviewed the ED Record and agree with the PA's/SENIOR CYTOGENETICS LABORATORY DIRECTOR's documentation. [] Additions or exceptions (if any) to the PAs/SENIOR CYTOGENETICS LABORATORY DIRECTOR's note and plan are summarized below: [] (RENETTA TATE DO) Critical Care Note Critical Care Note Critical Care Time: non-applicable (JOSE LUIS JAY)
[2016-03-02 16:01] LABS: ABSOLUTE BASOPHIL COUNT 0 /CUMM (0.0-0.2); ABSOLUTE EOSINOPHIL COUNT 0.1 /CUMM (0.0-0.7); ABSOLUTE GRANULOCYTE CT 5.8 /CUMM (1.4-6.5); ABSOLUTE LYMPH COUNT 1.1 /CUMM (1.2-3.4); ABSOLUTE MONOCYTE COUNT 0.4 /CUMM (0.10-0.60); BASOPHIL % 0.3 % (0.0-2.0); EOSINOPHIL % 1.6 % (0-5); GRANULOCYTE % 77.9 % (42.2-75.2); HEMATOCRIT 41.4 % (37-47); MEAN CORPUSCULAR HGB 31.6 PG (27.0-31.0); MEAN CORPUSCULAR HGB CONC 33.6 G/DL (33.0-37.0); MEAN CORPUSCULAR VOLUME 94.1 FL (81.0-99.0); MEAN PLATELET VOLUME 9.9 FL (7.4-10.4); PLATELET COUNT 176 /CUMM (130-400); RBC DISTRIBUTION WIDTH 14.7 % (11.5-14.5); WHITE BLOOD CELL COUNT 7.5 /CUMM (4.8-10.8)
[2016-03-02 16:37] LABS: PT 13.6 SEC (9.4-12.5); PTT 44 SEC (25-37)
--- NOTE | 2016-03-02 16:47 | CT SCAN REPORT ---
EXAMINATION: CT ANGIOGRAM OF THE CHEST WITH AND WITHOUT CONTRAST (CT PULMONARY ANGIOGRAM FOR PE) CLINICAL INFORMATION: Recent atrial fibrillation diagnosis. Shortness of breath. Evaluate for pulmonary embolism. COMPARISON: No pertinent prior studies are available for comparison. TECHNIQUE: Prior to contrast administration, noncontrast localization images were obtained. Subsequently, multidetector volumetric imaging was performed from the thoracic inlet to below the diaphragms following the administration of 68 mL Optiray 320 intravenous contrast. No contrast reaction reported. Sagittal, coronal, and MIP oblique sagittal reformatted images were obtained on the CT workstation, uploaded to PACS, and reviewed. Total exam dose-length product 313 mGy-cm FINDINGS: QUALITY OF STUDY/CONTRAST BOLUS: Adequate contrast opacification of the pulmonary arterial vasculature. PULMONARY ARTERIES: No evidence of pulmonary embolism to the level of the segmental pulmonary arteries. Evaluation of the subsegmental pulmonary arteries, notably within the left lower lobe is limited secondary to subsegmental atelectasis and respiratory motion abnormality. Areas of hypoattenuation within subsegmental arteries of the left lower lobe are indeterminate and could reflect atelectasis given low lung volumes and respiratory motion abnormality although thrombus cannot be entirely excluded. THORACIC AORTA: Normal caliber of the thoracic aorta. Limited evaluation for thoracic aortic aneurysm given phase of contrast imaging. LUNG: Evaluation of the lung parenchyma demonstrates subsegmental atelectasis within the left lung base. There is no focal airspace consolidation to suggest infection. The central airways are patent, without endobronchial obstructing lesions. PLEURA: No pleural effusions or pneumothoraces. MEDIASTINUM: Mild cardiomegaly, without significant pericardial effusion. Scattered atherosclerosis of the thoracic aorta, without aneurysmal dilatation. No evidence of septal bowing or right heart strain. No significant mediastinal or hilar adenopathy. CHEST WALL/AXILLA: No axillary or internal mammary lymphadenopathy. OSSEOUS STRUCTURES: Mild multilevel degenerative changes of the thoracic spine. No visible destructive osseous lesions. No acute vertebral compression deformities. UPPER ABDOMEN: No acute findings within the upper abdomen. No reflux of contrast into the hepatic veins to suggest elevated right heart pressures. IMPRESSION: Adequate contrast opacification of the pulmonary arterial vasculature. No evidence of pulmonary embolism to the level of the segmental pulmonary arteries. Evaluation of the subsegmental pulmonary arteries, notably within the left upper and left lower lobes is limited secondary to left lung pulmonary hypoinflation as well as left basilar subsegmental atelectasis. If clinical concern for pulmonary embolism persists, consider correlation with bilateral triplex ultrasound of the lower extremities. VTE: Indeterminate within the subsegmental pulmonary arteries of the left upper and left lower lobes.
[2016-03-02] MEDS ORDERED: MULTI-DAY VITA1 EACH PO (17:14)
[2016-03-02 18:09] VITALS: BP 135/77
== END 2016-03-02 18:18 ==
LOC: ERH 14:34
PROVIDERS: Emergency Medicine
DX: I48.91 Unspecified atrial fibrillation (principal); R06.02 Shortness of breath
CPT/HCPCS: 93005; 93010